=== PATIENT | female | born 1985 | race Caucasian/White ===

== ENCOUNTER 2017-03-21 07:15 | Observation (INO) | payer OTHER ==
[~2017-03-21] VITALS: Ht 175.3 cm; Wt 115.2 kg
--- NOTE | ~2017-03-21 | O ---
[facility] [place] [address] OPERATIVE REPORT Name: JACQUE HENDERSON Room #: 533-P [facility] M.RNancy#: [id number] Admission: 03/21/17 Attend Phys: Walker Epstein MD Discharge: Date of : 87 Report #: [id number] THIS REPORT FOR: //name// CC: MELINA physician/PCP Walker Epstein DATE OF SERVICE: 03/21/2017 SERVICE: Orthopedics. FACILITY: [facility]. SURGEON: Walker Epstein MD SENIOR CONSUMER INSIGHTS CONSULTANT: None. PREOPERATIVE DIAGNOSIS: Draining wound, left tibia with hematoma. POSTOPERATIVE DIAGNOSIS: Draining wound, left tibia with hematoma. PROCEDURE: Irrigation and debridement down to bone, left tibia. DRAIN: One 1/8th-inch Hemovac. SPECIMENS: Superficial and deep aerobic and anaerobic cultures. ANESTHESIA TYPE: General. TOURNIQUET TIME: Zero minutes. FINDINGS: 1. Partially absorbed calcium triphosphate bone void filler consistent with the material identified in the drainage obtained in wound. 2. Three liters irrigant lavaged through the tibial wound. 3. No signs of infection. 4. 15 mL of crushed cancellous bone chips placed in the defect. HISTORY OF PRESENT ILLNESS: The patient is a 32-year-old female who is approximately 1 week post open hardware removal with bone grafting of the tibial defect. She presented about 5 days postop with serosanguineous drainage with chalky material within which was suspected to be the calcium triphosphate bone void filler that was placed at the time of the original surgery and this was molded and placed as a posterior cortex to contain the autograft bone that was obtained as well as the allograft bone chips. Cultures of the wound drainage have thus far been negative. She was instructed on wound care and then she returned to the clinic with continued drainage and we elected to move forward [address] [address] OPERATIVE REPORT Name: JACQUE HENDERSON Room #: 533-P [facility] Wayne Becerril#: [id number] Admission: 03/21/17 Attend Phys: Walker Epstein MD Discharge: Date of : 87 Report #: [id number] with surgical debridement, irrigation and primary reclosure over a drain. Risks, benefits, alternatives and indications for surgery were discussed with her. The risks include but not limited to pain, bleeding, infection, injury to nerves or blood vessels, persistent pain despite surgical intervention, failure of any repairs or reconstructions, progression of any preexisting chondral injury, stiffness, need for further surgery as well as complications related to anesthesia such as stroke, heart attack, pulmonary complications, thromboembolic disease and . PROCEDURE IN DETAIL: After the left lower extremity was correctly identified in the preoperative holding area as the operative extremity, the patient was taken to the operating room and placed supine on operating table and general anesthesia was induced without complication. She was padded appropriately. Prophylactic antibiotics were held until after the cultures were taken, but she did receive 3 grams Ancef after cultures were obtained. The tourniquet was applied to the left leg, but was not utilized during the procedure. The left leg was prepped and draped in standard sterile fashion. Time-out procedure was performed. The previous incision was opened. There was reddish yellow discharge that was clear with chalky chunks and had slight traylor appearance that was consistent with the appearance of the calcium triphosphate bone void filler that was placed a week ago. The drainage was cultured superficially and was tracked down to the level of the bone where it was cultured once more. The deep portion and superficial portion of the wound did not show any evidence of infection. There was chalky material still within the wound, but about 60% to 70% of the material had been absorbed or extruded. There was a remnant left that was fragmenting. This was debrided and the loose cancellous allograft chips most of which still had some calcium triphosphate debris affixed to them were lavaged with the irrigant out of the wound to eradicate this bone void filler material as much as possible and to alleviate any potential for continued drainage. Total of 3 liters were thoroughly irrigated down to the level of the tibia. The autograft bone remained well packed and some early incorporation appeared to have already occurred. There was good vascularity in this location. After half of the irrigation was completed, a curette was used to complete the debridement process including of the bone and then the final liter and a half was used to complete the irrigation of the wound and then 15 mL of crushed cancellous bone chips were packed into the bone defect in order to provide a scaffold, so that this large defect could heal in. This is a high risk area for acute or stress fracture as it is the meta-diaphyseal junction and with the patient's habitus and activity level with impact exercises, I want to ensure that there is minimal risk of fracture and maximum opportunity for full bony incorporation and osseous healing. After bone grafting was performed, the deep layer was closed with 0 PDS suture in a [facility] [address] [place] [address] OPERATIVE REPORT Name: JACQUE HENDERSON Room #: 533-P [facility] Evelyn#: [id number] Admission: 03/21/17 Attend Phys: Walker Epstein MD Discharge: Date of : 87 Report #: [id number] fashion and then the skin was closed with 2-0 PDS followed by 3-0 nylon in a diagonal mattress suture fashion. Note that the deep layer was closed over a drain and then a sterile dressing was applied followed by compression stocking. The patient was awakened from anesthesia and taken to recovery room in stable condition. There were no complications and all counts were recorded as correct. <ELECTRONICALLY SIGNED> By: Walker Epstein MD 03/22/17 0727 13 00 Walker Epstein MD /nt
[~2017-03-21 07:15] MED LIST: BACTRIM DS TAB1 EACH PO; CENTRUM SILVER1 EAC4 PO; LEVOTHYROXINE0.2 M1 PO; MS CONTIN15 MG PO; OXYCODONE HCL 55 MG PO; PROAIR HFA8.5 GM INH; SINGULAIR 10 MG10 M1 PO; ZARAH TABLET1 EACH PO; ZOLOFT50 MG PO; ZYRTEC10 M5 PO
[2017-03-21 09:33] VITALS: BP 169/93
[2017-03-21 14:00] VITALS: BP 142/90
[2017-03-21 14:30] VITALS: BP 152/93
[2017-03-21 15:00] VITALS: BP 152/90
[2017-03-21 18:52] VITALS: BP 150/75
[2017-03-22 00:33] VITALS: BP 170/89
[2017-03-22 02:51] VITALS: BP 148/84
[2017-03-22 06:58] VITALS: BP 138/89
[2017-03-22 09:34] VITALS: BP 148/84
[2017-03-22 09:38] VITALS: BP 148/84
== END 2017-03-22 10:02 | disposition home or self-care (01) ==
LOC: TBA 07:15 → OR 07:15 → 5S 13:32 → OR 13:32 → PRE 15:06 → EDSTATUS 16:20 → OR 16:26 → 5S 03-22 10:02
DX: S81.802A Unspecified open wound, left lower leg, initial encounter (principal); M22.42 Chondromalacia patellae, left knee; M23.204 Derangement of unspecified medial meniscus due to old tear or injury, left knee; T84.298A Other mechanical complication of internal fixation device of other bones, initial encounter; M25.852 Other specified joint disorders, left hip; M25.851 Other specified joint disorders, right hip; S83.282A Other tear of lateral meniscus, current injury, left knee, initial encounter; Y93.89 Activity, other specified; X58.XXXA Exposure to other specified factors, initial encounter; Y92.89 Other specified places as the place of occurrence of the external cause; Y99.8 Other external cause status
CPT/HCPCS: 50010; 50101; 50386; 53170; 56525; 56527; 57091; 62110; 62900; 70005